=== PATIENT | male | born 1990 | race Asian ===

== ENCOUNTER 2019-02-16 07:02 | Emergency (ER) | payer OTHER ==
[~2019-02-16] VITALS: Ht 172.7 cm; Wt 88.5 kg
[2019-02-16 07:17] VITALS: BP_SYST 129
[2019-02-16 08:26] VITALS: BP_SYST 122
== END 2019-02-16 08:26 | disposition home or self-care (01) ==
LOC: SED 07:02
DX: J20.9 Acute bronchitis, unspecified (principal); R05 Cough
CPT/HCPCS: 36415; 71045; 86710; 99284